=== PATIENT | female | born 1995 | race African-American/Black ===

== ENCOUNTER 2022-10-05 08:28 | Emergency (ER) | payer OTHER ==
[~2022-10-05] VITALS: Ht 167.6 cm; Wt 62.1 kg
[2022-10-05 09:02] VITALS: BP 124/88
== END 2022-10-05 09:06 | disposition home or self-care (01) ==
LOC: ER 08:28
DX: S60.454A Superficial foreign body of right ring finger, initial encounter (principal); W45.8XXA Other foreign body or object entering through skin, initial encounter
CPT/HCPCS: 10120; 99282-25